=== PATIENT | male | born 1975 | race Caucasian/White ===

== ENCOUNTER 2017-03-31 08:08 | Emergency (ER) | payer OTHER ==
[2017-03-31 08:14] VITALS: BP 137/86; PULSE 94; TEMP 98.7; BMI 27.3
--- NOTE | 2017-03-31 09:02 | PDOC ---
History of Present Illness - General Chief Complaint: Pain, Acute Stated Complaint: SWOLLEN LT LEG Time Seen by Provider: 03/31/17 08:30 History Source: Patient Exam Limitations: No Limitations - History of Present Illness Initial Comments: 03/31/17 08:39 Patient is a 42 y/o male with no significant medical history presents emergency Department with swelling to left lower extremity patient reports "I feel like my leg is going to pop" patient denies any trauma to area, no prolonged sitting , no use of hormone therapy, no recent travel. Denies bug bite. Patient denies CP or SOB. Past Medical History: Denies. Allergies: No known allergies Medications: None Family History: Non-contributory Social History: Denies smoking, alcohol use, or IVDU Review of Systems GENERAL/CONSTITUTIONAL: No fever or chills. No weakness. No weight change. HEAD, EYES, EARS, NOSE AND THROAT: No change in vision. No ear pain or discharge. No sore throat. CARDIOVASCULAR: No chest pain or shortness of breath. RESPIRATORY: No cough, wheezing, or hemoptysis. GASTROINTESTINAL: No nausea, vomiting, diarrhea or constipation. No rectal bleeding. GENITOURINARY: No dysuria, frequency, or change in urination. MUSCULOSKELETAL: No joint or muscle swelling or pain. No neck or back pain. SKIN No rash or easy bruising. Left lower extremity pain and swelling NEUROLOGIC: No headache, vertigo, loss of consciousness, or loss of sensation. PSYCHIATRIC: No depression or anxiety. ENDOCRINE: No increased thirst. No abnormal weight change. HEMATOLOGIC/LYMPHATIC: No anemia, easy bleeding, or history of blood clots. ALLERGIC/IMMUNOLOGIC: No hives or skin allergy. No latex allergy. Physical Exam: GENERAL: The patient is awake, alert, and fully oriented, in no acute distress. HEAD: Normal with no signs of trauma. EYES: Pupils equal, round and reactive to light, extraocular movements intact, sclera anicteric, conjunctiva clear. ENT: Ears normal, nares patent, oropharynx clear without exudates. Moist mucous membranes. No uvula deviation NECK: Normal range of motion, supple without lymphadenopathy, JVD, or masses. LUNGS: Breath sounds equal, clear to auscultation bilaterally. No wheezes, and no crackles. HEART: Regular rate and rhythm, normal S1 and S2 without murmur, rub or gallop. ABDOMEN: Soft, nontender, normoactive bowel sounds. No guarding, no rebound. No masses. No bruising or abrasions MUSCULOSKELETAL: Normal range of motion, no edema. No clubbing or cyanosis. No cords, erythema, or tenderness. Pain and swelling to left lower extremity from toes to knee, Positive Melanie NEUROLOGICAL: Cranial nerves II through XII grossly intact. Normal speech, normal gait. SKIN: Warm, Dry, normal turgor, no rashes or lesions noted. +4 pitting edema to left lower extremity 03/31/17 09:24 Past History - Past Medical History Allergies/Adverse Reactions: Allergies Allergy/AdvReac Type Severity Reaction Status Date / Time No Known Allergies Allergy Verified 03/31/17 08:11 Home Medications: Ambulatory Orders Dabigatran Etexilate Mesylate [Pradaxa -] 150 mg PO BID #60 capsule 03/31/17 Other medical history: DENIES. - Surgical History Abdominal Surgery: Yes (HERNIA REPAIR.) - Suicide/Smoking/Psychosocial Hx Smoking History: Current every day smoker Number of Cigarettes Smoked Daily: 20 Information on smoking cessation initiated: No Hx Alcohol Use: Yes (DAILY VODKA.) Drug/Substance Use Hx: Yes (MARIJUANA.) Substance Use Type: Alcohol, Marijuana *Physical Exam - Vital Signs Last Vital Signs Temp Pulse Resp BP Pulse Ox 98.7 F 94 H 18 137/86 100 03/31/17 08:11 03/31/17 08:11 03/31/17 08:11 03/31/17 08:11 03/31/17 08:11 ED Treatment Course - RADIOLOGY Radiology Studies Ordered: Category Date Time Status DUPLEX VASCUL US-1 LEG [US] Stat Ultrasound 03/31/17 08:33 Ordered Medical Decision Making - Medical Decision Making 03/31/17 09:24 A/P: Patient with left lower extremity pitting edema with pain 10 out of 10, sensation that leg is going to pop. Patient sent immediately to ultrasound, noted with DVT involving the popliteal and posterior tibial vein, patient sent to main emergency department for higher level of care, report to charge nurse Eliane and Dr. Olmstead. Patient transferred via wheelchair. 03/31/17 09:37 *DC/Admit/Observation/Transfer Diagnosis at time of Disposition: DVT (deep venous thrombosis) Qualifiers: DVT location: lower extremity Affected thrombotic vein of extremity: popliteal Chronicity: acute Laterality: left Qualified Code(s): I82.432 - Acute embolism and thrombosis of left popliteal vein - Discharge Dispostion Disposition: HOME Condition at time of disposition: Stable - Prescriptions Prescriptions: Dabigatran Etexilate Mesylate [Pradaxa -] 150 mg PO BID #60 capsule - Referrals Referrals: Mikhail Lieberman MD [Staff Physician] - - Patient Instructions Printed Discharge Instructions: Serious Ways to Stop Smoking, DI for Deep Vein Thrombosis Additional Instructions: YOU MUST TAKE MEDICATION PRESCRIBED TWICE A DAY. IF YOU DO NOT, YOU RISK THAT THE CLOT WILL TRAVEL TO YOUR LUNGS, WHICH CAN BE LIFE-THREATENING. WE HAVE GIVEN YOU A MONTH SUPPLY, YOU MUST FOLLOW UP WITH A PRIMARY CARE PHYSICIAN OR IN OUR CLINIC TO CONTINUE THE MEDICATION, YOU WILL HAVE TO TAKE IT FOR SEVERAL MONTHS. IF YOU DEVELOP ANY SHORTNESS OF BREATH, CHEST PAIN, OR ANY OTHER CONCERNS, RETURN TO THE EMERGENCY DEPARTMENT IMMEDIATELY.
--- NOTE | 2017-03-31 09:55 | PDOC ---
*Physical Exam - Vital Signs Last Vital Signs Temp Pulse Resp BP Pulse Ox 98.7 F 94 H 18 137/86 100 03/31/17 08:11 03/31/17 08:11 03/31/17 08:11 03/31/17 08:11 03/31/17 08:11 Medical Decision Making - Medical Decision Making Contacted Steven to determine patient's drug coverage. He has similar copay for eliquis, pradaxa, and xarelto. Discussed the importance of taking medication as prescribed, as well as f/u with a PMD. Referred him to our clinic Dr. Lieberman for f/u, also gave him a list of PMDs in this system to ensure f/u. *DC/Admit/Observation/Transfer Diagnosis at time of Disposition: DVT (deep venous thrombosis) Qualifiers: DVT location: lower extremity Affected thrombotic vein of extremity: popliteal Chronicity: acute Laterality: left Qualified Code(s): I82.432 - Acute embolism and thrombosis of left popliteal vein - Discharge Dispostion Disposition: HOME Condition at time of disposition: Stable Admit: No - Prescriptions Prescriptions: Dabigatran Etexilate Mesylate [Pradaxa -] 150 mg PO BID #60 capsule - Referrals Referrals: Mikhail Lieberman MD [Staff Physician] - - Patient Instructions Printed Discharge Instructions: Serious Ways to Stop Smoking, DI for Deep Vein Thrombosis Additional Instructions: YOU MUST TAKE MEDICATION PRESCRIBED TWICE A DAY. IF YOU DO NOT, YOU RISK THAT THE CLOT WILL TRAVEL TO YOUR LUNGS, WHICH CAN BE LIFE-THREATENING. WE HAVE GIVEN YOU A MONTH SUPPLY, YOU MUST FOLLOW UP WITH A PRIMARY CARE PHYSICIAN OR IN OUR CLINIC TO CONTINUE THE MEDICATION, YOU WILL HAVE TO TAKE IT FOR SEVERAL MONTHS. IF YOU DEVELOP ANY SHORTNESS OF BREATH, CHEST PAIN, OR ANY OTHER CONCERNS, RETURN TO THE EMERGENCY DEPARTMENT IMMEDIATELY.
[2017-03-31] MEDS ORDERED: DABIGATRAN ETEXILATE MESYLATE 150 MG CAPSULE PO ONE (10:20)
== END 2017-03-31 10:50 | disposition home or self-care (01) ==
LOC: JER 08:08
DX: I82.432 Acute embolism and thrombosis of left popliteal vein (principal); F17.210 Nicotine dependence, cigarettes, uncomplicated
CPT/HCPCS: 93971-TC; 99283-25